=== PATIENT | male | born 1945 ===

== ENCOUNTER 2022-09-01 19:28 | Inpatient (IN) | payer MEDICARE, OTHER ==
[~2022-09-01] VITALS: Ht 165.1 cm; Wt 67.7 kg
[2022-09-01] MEDS ORDERED: MILK OF MAGNESIA 400 MG/5 ML 30 ML UDC PO PRN (19:45)
[2022-09-01] MEDS ORDERED: ONDANSETRON 4 MG/2 ML (SDV) Z0FRAN IV PRN (19:45)
[2022-09-01] MEDS ORDERED: diphenhydrAMINE 50 MG/ML INJ (BENADRYL) IVP PRN (19:45)
[2022-09-01] MEDS ORDERED: hydrALAZINE (APESOLINE) 20 MG/ML VIAL IV PRN (19:45)
[2022-09-01] MEDS ORDERED: WATER (STERILE) FOR INJ 10 ML BTL INJ SCH (19:45)
[2022-09-01] MEDS ORDERED: BISACODYL 10 MG SUPP (DULCOLAX) PR PRN (19:45)
[2022-09-01] MEDS ORDERED: ZIPRASIDONE 20 MG INJ (GEODON) VIAL IM PRN (19:45)
[2022-09-01] MEDS ORDERED: ACETAMINOPHEN 650 MG SUPP (TYLENOL) PR PRN (19:45)
[2022-09-01] MEDS ORDERED: HYDROmorphone 2 MG/ML VIAL (DILAUDID) IV PRN (19:45)
[2022-09-01] MEDS: NS IV 1000 ML 1,000 ML IV SCH (23:55)
[2022-09-02] MEDS: NS IV 1000 ML 1,000 ML IV SCH ×3 (03:45→21:59)
[2022-09-02 03:48] VITALS: BP 132/75
[2022-09-02 06:03] LABS: BASOPHILS % (AUTO) 0 % (0-10); EOSINOPHILS # (AUTO) 0.2 10^3/uL (0.0-0.3); EOSINOPHILS % (AUTO) 1 % (0-10); HEMATOCRIT 42 % (40-54); HEMOGLOBIN 14.2 g/dL (13.3-17.7); LYMPHOCYTES # (AUTO) 1.2 10^3/uL (1.0-4.0); LYMPHOCYTES % (AUTO) 7 % (12-44); MEAN CORPUSCULAR HEMOGLOBIN 31 pg (25-34); MEAN CORPUSCULAR HGB CONC 34 g/dL (32-36); MEAN CORPUSCULAR VOLUME 92 fL (80-99); MEAN PLATELET VOLUME 11.4 fL (9.0-12.2); MONOCYTES # (AUTO) 1.1 10^3/uL (0.0-1.0); MONOCYTES % (AUTO) 7 % (0-12); NEUTROPHILS # (AUTO) 13.2 10^3/uL (1.8-7.8); NEUTROPHILS % (AUTO) 84 % (42-75); PLATELET COUNT 260 10^3/uL (130-400); WHITE BLOOD COUNT 15.8 10^3/uL (4.3-11.0)
[2022-09-02 06:16] LABS: ALBUMIN 3.4 GM/DL (3.2-4.5); POTASSIUM 4.3 MMOL/L (3.6-5.0)
[2022-09-02 06:17] LABS: CALCIUM 8.8 MG/DL (8.5-10.1)
[2022-09-02 06:18] LABS: TOTAL PROTEIN 6.2 GM/DL (6.4-8.2)
[2022-09-02 06:20] LABS: BILIRUBIN,TOTAL 0.8 MG/DL (0.1-1.0)
[2022-09-02 06:22] LABS: CREATININE SERUM 0.83 MG/DL (0.60-1.30)
[2022-09-02 06:41] LABS: BAND NEUTROPHILS 15 %; BASOPHILS % (MANUAL) 0 %; EOSINOPHILS % (MANUAL) 0 %; LYMPHOCYTES % (MANUAL) 5 %; MONOCYTES % (MANUAL) 4 %; NEUTROPHILS % (MANUAL) 74 %; RBC MORPH NORMAL; REACTIVE LYMPHOCYTES 2 %
[2022-09-02 08:06] VITALS: BP 125/67
--- NOTE | 2022-09-02 08:48 | Diagnostic Imaging Report ---
INDICATION: Abdominal distention FINDINGS: The bowel gas pattern is nonspecific. There are no abnormal abdominal calcifications. There are postsurgical changes in the lower lumbar spine. IMPRESSION: Nonspecific bowel gas pattern Dictated by: Dictated on workstation # [id number]
[2022-09-02] MEDS: PANTOPRAZOLE 40 MG (PROTONIX) VIAL IV SCH (09:44)
[2022-09-02] MEDS: ENOXAPARIN 40 MG/0.4 ML (LOVENOX) SYR SC SCH (09:44)
[2022-09-02 09:48] VITALS: BP 125/67
[2022-09-02] MEDS ORDERED: RT-ALBUTEROL/IPRATROPIUM 3 ML (DUONEB) VIAL INH PRN (10:00)
[2022-09-02] MEDS: RT-ALBUTEROL/IPRATROPIUM 3 ML (DUONEB) VIAL INH SCH ×3 (11:03→19:33)
[2022-09-02] MEDS ORDERED: MELA10TA2 PO (11:51)
[2022-09-02] MEDS ORDERED: IBUP-2473 PO (11:51)
[2022-09-02] MEDS ORDERED: METO50TA7 PO (11:51)
[2022-09-02] MEDS ORDERED: HYDR12.56 PO (11:51)
[2022-09-02] MEDS ORDERED: LISI40TA9 PO (11:51)
[2022-09-02] MEDS ORDERED: CHOL20002 PO (11:51)
[2022-09-02] MEDS ORDERED: FAMO20TA5 PO (11:51)
[2022-09-02 12:14] VITALS: BP 132/76
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
[2022-09-02 16:04] VITALS: BP 150/65
[2022-09-02 19:48] VITALS: BP 157/84
--- NOTE | 2022-09-02 21:13 | CONSULTATION REPORT ---
DATE OF SERVICE: 09/02/2022 HISTORY OF PRESENT ILLNESS: The patient is a 77-year-old male transferred from [facility] yesterday. He had reported crampy abdominal pain starting the day before after eating food. He reported episodic spasms and crampy abdominal pain, which was most in the left upper abdominal quadrant. He states that he has not had a bowel movement for few days. He also does not report any issues with red blood per rectum nor any dark tarry stools. He states that he does have some issues with heartburn and reflux. He has had some issues with nausea; however, no vomiting. This gentleman does also has an extensive past medical history. Around 1984, he states that he had some type of peritonitis, which may have been a left sided Crohn's disease versus diverticulitis and underwent an exploratory laparotomy, resection of the left side of the colon and an end colostomy. The abdomen was left partially open and retention sutures were also placed. After this had healed, he then underwent reversal of the colostomy. He had reported before this he had also had an open appendectomy. Since being admitted, he continues to have some issues with nausea; however, no vomiting. His abdominal x-ray did show significant amount of stool in the colon and there did not appear to be a significant amount of small bowel dilatation. PAST MEDICAL HISTORY: Hypertension, gastroesophageal reflux disease. PAST SURGICAL HISTORY: Open appendectomy, exploratory laparotomy, low anterior colorectal resection and end colostomy, reversal of colostomy, lumbar open reduction and internal fixation. ALLERGIES: NAPROXEN. MEDICATIONS: Famotidine 20 mg daily, hydrochlorothiazide 12.5 mg daily, ibuprofen 400 mg daily, lisinopril 40 mg daily, melatonin daily, metoprolol 50 mg daily. SOCIAL HISTORY: Positive smoke, 70 pack years. States that he does drink 2 drinks daily. FAMILY HISTORY: Mother, breast cancer. VITAL SIGNS: Temperature 36.6, blood pressure 157/84, pulse 64, respirations 20, pulse ox 97% on room air. REVIEW OF SYSTEMS: This is a well-nourished male currently in no acute distress. He is not experiencing any shortness of breath or difficulty breathing. No chest pain, palpitations, no diaphoresis. Intermittent episodes of nausea, no vomiting. He states that he has not had a bowel movement in the past few days. He does not report any recent red blood per rectum nor any dark tarry stools. No fever or chills, no recent inadvertent weight loss. All other review of systems negative. PHYSICAL EXAMINATION: CHEST: Scattered rales and wheezes bilaterally. HEART: Regular, no murmurs. EXTREMITIES: No lower extremity edema, negative Homans sign. HEENT: No scleral icterus. NECK: No cervical lymphadenopathy. ABDOMEN: Soft. There is some mild discomfort, which is diffuse. There are no peritoneal signs. Only a moderate amount of abdominal distention. No palpable hernias. SKIN: Warm, dry. LABORATORY DATA: WBC 15.8, hemoglobin 14.2, hematocrit 42, platelets 260, BUN 25, creatinine 0.83. ASSESSMENT AND PLAN: A 77-year-old male with potential partial small bowel obstruction; however, recent x-ray today did not show any signs of obstruction; however, he does have a significant amount of what appears to be constipation and stool throughout the entirety of the colon, and we will start him on MiraLax 17 grams b.i.d. as well as addition of Reglan 5 mg q.i.d. on schedule. We will also proceed with followup abdominal x-rays. Job ID: [id number] DocumentID: [id number] Dictated Date: 09/02/2022 20:31:43 Bicycle Repairman Date: 09/02/2022 21:13:03 Dictated By: IVAN DE LEÓN MD [facility]
[2022-09-02] MEDS: polyethylene glycoL POWDER 17 GM (MIRALAX) PACK PO SCH (22:21)
[2022-09-03 00:30] VITALS: BP 151/72
[2022-09-03] MEDS: METOCLOPRAMIDE INJ 10 MG/2 ML (REGLAN) IVP SCH ×4 (00:38→17:26)
[2022-09-03 04:00] VITALS: BP 153/76
[2022-09-03] MEDS: NS IV 1000 ML 1,000 ML IV SCH ×3 (04:00→17:59)
[2022-09-03 05:59] LABS: BASOPHILS % (AUTO) 0 % (0-10); EOSINOPHILS % (AUTO) 0 % (0-10); HEMATOCRIT 40 % (40-54); HEMOGLOBIN 13.2 g/dL (13.3-17.7); LYMPHOCYTES # (AUTO) 1.5 10^3/uL (1.0-4.0); LYMPHOCYTES % (AUTO) 15 % (12-44); MEAN CORPUSCULAR HEMOGLOBIN 31 pg (25-34); MEAN CORPUSCULAR HGB CONC 33 g/dL (32-36); MEAN CORPUSCULAR VOLUME 94 fL (80-99); MEAN PLATELET VOLUME 11.3 fL (9.0-12.2); MONOCYTES # (AUTO) 0.8 10^3/uL (0.0-1.0); MONOCYTES % (AUTO) 8 % (0-12); NEUTROPHILS # (AUTO) 7.4 10^3/uL (1.8-7.8); NEUTROPHILS % (AUTO) 76 % (42-75); PLATELET COUNT 261 10^3/uL (130-400); WHITE BLOOD COUNT 9.9 10^3/uL (4.3-11.0)
[2022-09-03 06:17] LABS: ALBUMIN 3.5 GM/DL (3.2-4.5)
[2022-09-03 06:18] LABS: POTASSIUM 3.6 MMOL/L (3.6-5.0)
[2022-09-03 06:19] LABS: CALCIUM 8.6 MG/DL (8.5-10.1)
[2022-09-03 06:20] LABS: TOTAL PROTEIN 6.6 GM/DL (6.4-8.2)
[2022-09-03 06:22] LABS: BILIRUBIN,TOTAL 0.7 MG/DL (0.1-1.0)
[2022-09-03 06:24] LABS: CREATININE SERUM 0.86 MG/DL (0.60-1.30)
[2022-09-03] MEDS: RT-ALBUTEROL/IPRATROPIUM 3 ML (DUONEB) VIAL INH SCH ×4 (07:06→20:20)
[2022-09-03 07:46] VITALS: BP 149/65
[2022-09-03] MEDS: ENOXAPARIN 40 MG/0.4 ML (LOVENOX) SYR SC SCH (08:40)
[2022-09-03] MEDS: PANTOPRAZOLE 40 MG (PROTONIX) VIAL IV SCH (08:40)
--- NOTE | 2022-09-03 09:05 | Diagnostic Imaging Report ---
INDICATION: Abdominal distention. COMPARISON: 09/02/2022 FINDINGS: 2 frontal supine radiograph views the abdomen were obtained and demonstrate nondistended loops of small bowel. There is no large collection of free peritoneal air. Xfrx-ti-[id number] air and stool are seen scattered throughout the colon. No unexpected extraosseous calcifications or radiopaque foreign bodies are seen. Bony structures show no gross acute abnormalities. IMPRESSION: 1. Nonobstructed small bowel gas pattern. 2. [id number] colonic air and stool. Please correlate for constipation Dictated by: Dictated on workstation # [id number]
[2022-09-03] MEDS ORDERED: DOCUSATE SODIUM 100 MG (COLACE) CAP PO PRN (11:15)
[2022-09-03] MEDS: polyethylene glycoL POWDER 17 GM (MIRALAX) PACK PO SCH ×2 (11:23→19:26)
[2022-09-03 11:39] VITALS: BP 183/77
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
--- NOTE | 2022-09-03 13:26 | Progress Note ---
Subjective Date Seen by a Provider: Sep 03, 2022 Time Seen by a Provider: 11:00 Subjective/Events-last exam doing better. less abd discomfort and no nausea/vomiting. has not had BM yet. Objective Exam Vital Signs Date Time Temp Pulse Resp B/P (MAP) Pulse Ox O2 Delivery O2 Flow Rate FiO2 09/03/22 11:39 36.4 77 18 183/77 (112) 98 Room Air 09/03/22 11:16 Room Air 99 09/03/22 07:46 36.4 73 18 149/65 (93) 96 Room Air 09/03/22 07:07 Room Air 98 09/03/22 04:00 36.5 64 16 153/76 (101) 97 Room Air 09/03/22 00:30 36.1 63 18 151/72 (98) 96 Room Air 09/02/22 20:00 97 Room Air 09/02/22 19:48 36.6 64 20 157/84 (108) 97 Room Air 09/02/22 19:33 Room Air 92 09/02/22 16:04 36.5 64 20 150/65 (93) 97 Room Air I & O 09/03/22 07:00 Intake Total 1200 ml Output Total 1000 ml Balance 200 ml Capillary Refill : General Appearance: No Apparent Distress HEENT: PERRL/EOMI Neck: Full Range of Motion Respiratory: Chest Non Tender, Wheezing Cardiovascular: Regular Rate, Rhythm Gastrointestinal: normal bowel sounds, soft, tenderness Extremity: Normal Capillary Refill Neurologic/Psychiatric: Alert, Oriented x3 Skin: Normal Color Lymphatic: No Adenopathy Results Lab Laboratory Tests 09/03/22 05:30: White Blood Count 9.9, Red Blood Count 4.23L, Hemoglobin 13.2L, Hematocrit 40, Mean Corpuscular Volume 94, Mean Corpuscular Hemoglobin 31, Mean Corpuscular Hemoglobin Concent 33, Red Cell Distribution Width 12.6, Platelet Count 261, Mean Platelet Volume 11.3, Immature Granulocyte % (Auto) 0, Neutrophils (%) (A uto) 76H, Lymphocytes (%) (Auto) 15, Monocytes (%) (Auto) 8, Eosinophils (%) (Auto) 0, Basophils (%) (Auto) 0, Neutrophils # (Auto) 7.4, Lymphocytes # (Auto) 1.5, Monocytes # (Auto) 0.8, Eosinophils # (Auto) 0.0, Basophils # (Auto) 0.0, Immature Granulocyte # (Auto) 0.0, Sodium Level 133L, Potassium Level 3.6, Chloride Level 104, Carbon Dioxide Level 20L, Anion Gap 9, Blood Urea Nitrogen 17, Creatinine 0.86, Estimat Glomerular Filtration Rate 88, BUN/Creatinine Ratio 20, Glucose Level 82, Calcium Level 8.6, Corrected Calcium 9.0, Total Bilirubin 0.7, Aspartate Amino Transf (AST/SGOT) 23, Alanine Aminotransferase (ALT/SGPT) 15, Alkaline Phosphatase 60, Total Protein 6.6, Albumin 3.5 Assessment/Plan Assessment/Plan Assess & Plan/Chief Complaint constipation. add more stool softeners and laxatives until has significant BM. ambulate IVAN DE LEÓN MD Sep 03, 2022 13:26
[2022-09-03 15:51] VITALS: BP 150/71
[2022-09-03 19:28] VITALS: BP 172/72
[2022-09-03] MEDS ORDERED: FUROSEMIDE 40 MG/4 ML INJ (LASIX) IVP ONE (22:00)
[2022-09-03] MEDS ORDERED: FUROSEMIDE 40 MG/4 ML INJ (LASIX) ONE (22:00)
[2022-09-04 00:03] VITALS: BP 146/68
[2022-09-04] MEDS: METOCLOPRAMIDE INJ 10 MG/2 ML (REGLAN) IVP SCH ×3 (00:16→12:14)
[2022-09-04 03:49] VITALS: BP 146/86
--- NOTE | 2022-09-04 05:33 | Progress Note ---
Subjective Date Seen by a Provider: Sep 04, 2022 Time Seen by a Provider: 08:00 Objective Exam Last Set of Vital Signs Vital Signs Date Time Temp Pulse Resp B/P (MAP) Pulse Ox O2 Delivery O2 Flow Rate FiO2 09/04/22 03:49 36.5 84 16 146/86 (106) 97 Room Air 09/03/22 15:04 95 Capillary Refill : I&O Intake and Output 09/04/22 00:00 Intake Total 1020 ml Output Total 1050 ml Balance -30 ml Intake Oral 1020 ml Output Urine Total 1050 ml # Voids 3 Assessment/Plan Assessment/Plan Assess & Plan/Chief Complaint Ambulate Monitor closely Diagnosis/Problems Diagnosis/Problems (1) SBO (small bowel obstruction) Clinical Quality Measures Admission Status Admission Dx Nebs IS IVF Ambulate SEBASTIEN ATKINSON DO Sep 04, 2022 05:33
[2022-09-04 05:58] LABS: BASOPHILS % (AUTO) 0 % (0-10); EOSINOPHILS % (AUTO) 0 % (0-10); HEMATOCRIT 37 % (40-54); HEMOGLOBIN 12.5 g/dL (13.3-17.7); LYMPHOCYTES # (AUTO) 1.3 10^3/uL (1.0-4.0); LYMPHOCYTES % (AUTO) 17 % (12-44); MEAN CORPUSCULAR HEMOGLOBIN 31 pg (25-34); MEAN CORPUSCULAR HGB CONC 34 g/dL (32-36); MEAN CORPUSCULAR VOLUME 91 fL (80-99); MEAN PLATELET VOLUME 10.9 fL (9.0-12.2); MONOCYTES % (AUTO) 12 % (0-12); NEUTROPHILS # (AUTO) 5.6 10^3/uL (1.8-7.8); NEUTROPHILS % (AUTO) 71 % (42-75); PLATELET COUNT 251 10^3/uL (130-400)
[2022-09-04 06:09] LABS: ALBUMIN 3.5 GM/DL (3.2-4.5)
[2022-09-04 06:10] LABS: POTASSIUM 3.3 MMOL/L (3.6-5.0)
[2022-09-04 06:11] LABS: CALCIUM 8.4 MG/DL (8.5-10.1)
[2022-09-04 06:12] LABS: TOTAL PROTEIN 6.3 GM/DL (6.4-8.2)
[2022-09-04 06:14] LABS: BILIRUBIN,TOTAL 0.4 MG/DL (0.1-1.0)
[2022-09-04 06:16] LABS: CREATININE SERUM 0.78 MG/DL (0.60-1.30)
[2022-09-04] MEDS: RT-ALBUTEROL/IPRATROPIUM 3 ML (DUONEB) VIAL INH SCH ×2 (06:22→11:10)
[2022-09-04 07:37] VITALS: BP 157/72
[2022-09-04] MEDS ORDERED: SENNA W/DOCUSATE (SENOKOT S) TABLET PO SCH (09:00)
[2022-09-04] MEDS ORDERED: KCL 20 MEQ TAB (K-DUR) PO ONE (09:15)
[2022-09-04] MEDS: PANTOPRAZOLE 40 MG (PROTONIX) VIAL IV SCH (09:29)
[2022-09-04] MEDS: polyethylene glycoL POWDER 17 GM (MIRALAX) PACK PO SCH (09:34)
[2022-09-04] MEDS: ENOXAPARIN 40 MG/0.4 ML (LOVENOX) SYR SC SCH (09:34)
--- NOTE | 2022-09-04 09:38 | Discharge Summary ---
Diagnosis/Chief Complaint Date of Admission Sep 01, 2022 at 23:55 Date of Discharge Discharge Date: Sep 04, 2022 Discharge Diagnosis SBO versus ileus Plan: 1. Constipation vs possible partial small bowel obstruction - Outside CT scan with evidence of small bowel obstruction, thus transferred here - Abd xray 09/02 with nonspecific bowel gas pattern - Abd xray 09/03 preliminary read of nonobstructed small bowel gas pattern, mild to mod colonic air and stool - unable to place NG tube in ED due to history of facial fracture and stenosis of nasal passages - PE of severely decreased bowel sound, patient has not had a bowel movement yet > Gen surg consulted, thought to unlikely be a small bowel obstruction but rather constipation. Started on Miralax BID and Reglan 5mg IV QID to encourage bowel movement. Will continue with serial abdominal xrays. > remain NPO until bowel movement > IVF at 125mL/hr > Zofran 4mg IV q6 PRN > Dilaudid 0.25mg q2 PRN > Pantoprazole 40mg IV QD 2. Hx of tobacco use > Incentive spirometry > Albuterol inhaler DIET: NPO until bowel movement and then can begin to advance diet Code status: Patient request 1 round of CPR and 1 attempt of defibrillator to be made, but does not want excessive measures taken DVT PPI: Lovenox Dispo: cont inpatient Reason Hospital Visit CC: SBO HPI: This is a 77yoWM w/h/o colostomy who presents with SBO. Discharge Summary Discharge Physical Examination Allergies: Coded Allergies: naproxen (Verified Allergy, Unknown, 09/02/22) Vitals & I&Os Vital Signs Date Time Temp Pulse Resp B/P (MAP) Pulse Ox O2 Delivery O2 Flow Rate FiO2 09/04/22 08:00 96 Room Air 09/04/22 07:37 36.7 80 18 157/72 (100) 09/04/22 06:22 93 General Appearance: Alert, Oriented X3, Cooperative Respiratory: Clear to Auscultation Cardiovascular: Regular Rate Psych/Mental Status: Mental Status NL Hospital Course Was the Problem List Reviewed?: Yes Uneventful course after he was admitted following CT scan suspicious for SBO. Dr Parry consulted and KUB revealed a possible ileus and constipation rather than an SBO. Laxatives given and overall had evacuation of bowels and was ready for DC after tolerating a soft diet Labs (last 24 hrs) Laboratory Tests 09/02/22 05:19: White Blood Count 15.8H, Red Blood Count 4.57, Hemoglobin 14.2, Hematocrit 42, Mean Corpuscular Volume 92, Mean Corpuscular Hemoglobin 31, Mean Corpuscular Hemoglobin Concent 34, Red Cell Distribution Width 12.5, Platelet Count 260, Mean Platelet Volume 11.4, Immature Granulocyte % (Auto) 1, Neutrophils (%) (Auto) 84H, Lymphocytes (%) (Auto) 7L, Monocytes (%) (Auto) 7, Eosinophils (%) (Auto) 1, Basophils (%) (Auto) 0, Neutrophils # (Auto) 13.2H, Lymphocytes # (Auto) 1.2, Monocytes # (Auto) 1.1H, Eosinophils # (Auto) 0.2, Basophils # (Auto) 0.0, Immature Granulocyte # (Auto) 0.1, Neutrophils % (Manual) 74, Lymphocytes % (Manual) 5, Monocytes % (Manual) 4, Eosinophils % (Manual) 0, Basophils % (Manual) 0, Band Neutrophils 15, Reactive Lymphocytes 2, Blood Morphology Comment NORMAL, Sodium Level 133L, Potassium Level 4.3, Chloride Level 102, Carbon Dioxide Level 23, Anion Gap 8, Blood Urea Nitrogen 25H, Creatinine 0.83, Estimat Glomerular Filtration Rate 89, BUN/Creatinine Ratio 30, Glucose Level 97, Calcium Level 8.8, Corrected Calcium 9.3, Total Bilirubin 0.8, Aspartate Amino Transf (AST/SGOT) 21, Alanine Aminotransferase (ALT/SGPT) 14, Alkaline Phosphatase 61, Total Protein 6.2L, Albumin 3.4 09/03/22 05:30: White Blood Count 9.9, Red Blood Count 4.23L, Hemoglobin 13.2L, Hematocrit 40, Mean Corpuscular Volume 94, Mean Corpuscular Hemoglobin 31, Mean Corpuscular Hemoglobin Concent 33, Red Cell Distribution Width 12.6, Platelet Count 261, Mean Platelet Volume 11.3, Immature Granulocyte % (Auto) 0, Neutrophils (%) (Auto) 76H, Lymphocytes (%) (Auto) 15, Monocytes (%) (Auto) 8, Eosinophils (%) (Auto) 0, Basophils (%) (Auto) 0, Neutrophils # (Auto) 7.4, Lymphocytes # (Auto) 1.5, Monocytes # (Auto) 0.8, Eosinophils # (Auto) 0.0, Basophils # (Auto) 0.0, Immature Granulocyte # (Auto) 0.0, Sodium Level 133L, Potassium Level 3.6, Chloride Level 104, Carbon Dioxide Level 20L, Anion Gap 9, Blood Urea Nitrogen 17, Creatinine 0.86, Estimat Glomerular Filtration Rate 88, BUN/Creatinine Ratio 20, Glucose Level 82, Calcium Level 8.6, Corrected Calcium 9.0, Total Bilirubin 0.7, Aspartate Amino Transf (AST/SGOT) 23, Alanine Aminotransferase (ALT/SGPT) 15, Alkaline Phosphatase 60, Total Protein 6.6, Albumin 3.5 09/04/22 05:42: White Blood Count 8.0, Red Blood Count 4.06L, Hemoglobin 12.5L, Hematocrit 37L, Mean Corpuscular Volume 91, Mean Corpuscular Hemoglobin 31, Mean Corpuscular Hemoglobin Concent 34, Red Cell Distribution Width 12.4, Platelet Count 251, Mean Platelet Volume 10.9, Immature Granulocyte % (Auto) 0, Neutrophils (%) (Auto) 71, Lymphocytes (%) (Auto) 17, Monocytes (%) (Auto) 12, Eosinophils (%) (Auto) 0, Basophils (%) (Auto) 0, Neutrophils # (Auto) 5.6, Lymphocytes # (Auto) 1.3, Monocytes # (Auto) 1.0, Eosinophils # (Auto) 0.0, Basophils # (Auto) 0.0, Immature Granulocyte # (Auto) 0.0, Sodium Level 133L, Potassium Level 3.3L, Chloride Level 104, Carbon Dioxide Level 20L, Anion Gap 9, Blood Urea Nitrogen 11, Creatinine 0.78, Estimat Glomerular Filtration Rate 91, BUN/Creatinine Ratio 14, Glucose Level 97, Calcium Level 8.4L, Corrected Calcium 8.8, Total Bilirubin 0.4, Aspartate Amino Transf (AST/SGOT) 28, Alanine Aminotransferase (ALT/SGPT) 17, Alkaline Phosphatase 58, Total Protein 6.3L, Albumin 3.5 Pending Labs Laboratory Tests 09/02/22 05:19: White Blood Count 15.8, Red Blood Count 4.57, Hemoglobin 14.2, Hematocrit 42, Mean Corpuscular Volume 92, Mean Corpuscular Hemoglobin 31, Mean Corpuscular Hemoglobin Concent 34, Red Cell Distribution Width 12.5, Platelet Count 260, M giuliana Platelet Volume 11.4, Immature Granulocyte % (Auto) 1, Neutrophils (%) (Auto) 84, Lymphocytes (%) (Auto) 7, Monocytes (%) (Auto) 7, Eosinophils (%) (Auto) 1, Basophils (%) (Auto) 0, Neutrophils # (Auto) 13.2, Lymphocytes # (Auto) 1.2, Monocytes # (Auto) 1.1, Eosinophils # (Auto) 0.2, Basophils # (Auto) 0.0, Immature Granulocyte # (Auto) 0.1, Neutrophils % (Manual) 74, Lymphocytes % (Manual) 5, Monocytes % (Manual) 4, Eosinophils % (Manual) 0, Basophils % (Manual) 0, Band Neutrophils 15, Reactive Lymphocytes 2, Blood Morphology Comment NORMAL, Sodium Level 133, Potassium Level 4.3, Chloride Level 102, Carbon Dioxide Level 23, Anion Gap 8, Blood Urea Nitrogen 25, Creatinine 0.83, Estimat Glomerular Filtration Rate 89, BUN/Creatinine Ratio 30, Glucose Level 97, Calcium Level 8.8, Corrected Calcium 9.3, Total Bilirubin 0.8, Aspartate Amino Transf (AST/SGOT) 21, Alanine Aminotransferase (ALT/SGPT) 14, Alkaline Phosphatase 61, Total Protein 6.2, Albumin 3.4 09/03/22 05:30: White Blood Count 9.9, Red Blood Count 4.23, Hemoglobin 13.2, Hematocrit 40, Mean Corpuscular Volume 94, Mean Corpuscular Hemoglobin 31, Mean Corpuscular Hemoglobin Concent 33, Red Cell Distribution Width 12.6, Platelet Count 261, Mean Platelet Volume 11.3, Immature Granulocyte % (Auto) 0, Neutrophils (%) (Auto) 76, Lymphocytes (%) (Auto) 15, Monocytes (%) (Auto) 8, Eosinophils (%) (Auto) 0, Basophils (%) (Auto) 0, Neutrophils # (Auto) 7.4, Lymphocytes # (Auto) 1.5, Monocytes # (Auto) 0.8, Eosinophils # (Auto) 0.0, Basophils # (Auto) 0.0, Immature Granulocyte # (Auto) 0.0, Sodium Level 133, Potassium Level 3.6, Chloride Level 104, Carbon Dioxide Level 20, Anion Gap 9, Blood Urea Nitrogen 17, Creatinine 0.86, Estimat Glomerular Filtration Rate 88, BUN/Creatinine Ratio 20, Glucose Level 82, Calcium Level 8.6, Corrected Calcium 9.0, Total Bilirubin 0.7, Aspartate Amino Transf (AST/SGOT) 23, Alanine Aminotransferase (ALT/SGPT) 15, Alkaline Phosphatase 60, Total Protein 6.6, Albumin 3.5 09/04/22 05:42: White Blood Count 8.0, Red Blood Count 4.06, Hemoglobin 12.5, Hematocrit 37, Mean Corpuscular Volume 91, Mean Corpuscular Hemoglobin 31, Mean Corpuscular Hemoglobin Concent 34, Red Cell Distribution Width 12.4, Platelet Count 251, Mean Platelet Volume 10.9, Immature Granulocyte % (Auto) 0, Neutrophils (%) (Auto) 71, Lymphocytes (%) (Auto) 17, Monocytes (%) (Auto) 12, Eosinophils (%) (Auto) 0, Basophils (%) (Auto) 0, Neutrophils # (Auto) 5.6, Lymphocytes # (Auto) 1.3, Monocytes # (Auto) 1.0, Eosinophils # (Auto) 0.0, Basophils # (Auto) 0.0, Immature Granulocyte # (Auto) 0.0, Sodium Level 133, Potassium Level 3.3, Chloride Level 104, Carbon Dioxide Level 20, Anion Gap 9, Blood Urea Nitrogen 11, Creatinine 0.78, Estimat Glomerular Filtration Rate 91, BUN/Creatinine Ratio 14, Glucose Level 97, Calcium Level 8.4, Corrected Calcium 8.8, Total Bilirubin 0.4, Aspartate Amino Transf (AST/SGOT) 28, Alanine Aminotransferase (ALT/SGPT) 17, Alkaline Phosphatase 58, Total Protein 6.3, Albumin 3.5 Discharge Home Medications: Active Scripts Active Reported Vitamin D3 (Cholecalciferol (Vitamin D3)) 50 Mcg (2000 Unit) Capsule 50 Mcg PO DAILY Ibuprofen 200 Mg Tablet 400 Mg PO HS TAKES 2 (200MG) TABS Melatonin 10 Mg Tablet 10 Mg PO HS Hydrochlorothiazide 12.5 Mg Tablet 12.5 Mg PO DAILY Metoprolol Succinate 50 Mg Tab.er.24h 50 Mg PO DAILY Famotidine 20 Mg Tablet 20 Mg PO HS Lisinopril 40 Mg Tablet 40 Mg PO DAILY Instructions to patient/family Please see electronic discharge instructions given to patient. Diagnosis/Problems Diagnosis/Problems (1) SBO (small bowel obstruction) SEBASTIEN ATKINSON DO Sep 04, 2022 09:38
== END 2022-09-04 12:23 | disposition home or self-care (01) | DRG 392 ==
LOC: 4TH 23:55
PROVIDERS: ADMIT Internal Medicine; ATTEND Internal Medicine
DX: K59.00 Constipation, unspecified (principal); K56.7 Ileus, unspecified; F17.210 Nicotine dependence, cigarettes, uncomplicated; I10 Essential (primary) hypertension; K21.9 Gastro-esophageal reflux disease without esophagitis; G89.29 Other chronic pain; M54.9 Dorsalgia, unspecified
CPT/HCPCS: 36415; 74018; 74019; 80053; 85007; 85025; 85027; 94640; 94664; 94760